=== PATIENT | male | born 1950 | race Caucasian/White ===

== ENCOUNTER → 2022-02-06 15:12 | Outpatient (CLI) | payer OTHER, SELFPAY ==
--- NOTE | ~2022-02-06 | US_ITS ---
EXAMINATION: US soft tissue groin LT DATE: 02/06/2022 15:43 INDICATION: Left lower quadrant pain. TECHNIQUE: Grayscale and Doppler ultrasound images of the left groin/left lower quadrant were obtaine d. COMPARISON: None. FINDINGS: Multiple slightly irregular heterogeneous subcutaneous masses are present, these likely rep resent lymph nodes of varying size and with varying degrees of fatty hilum infiltration the largest m easures 2.8 x 1.5 x 0.4 cm. No cystic lesion or fluid collection. No definite hernia. IMPRESSION: 1. Prominent left inguinal lymph nodes. 2. No significant sonographic abnormality detected. Reviewed, dictated and finalized at location K.
== END ==
PROVIDERS: PCP Family Medicine; Visit Provider Surgery
DX: R10.32 Left lower quadrant pain (principal)
CPT/HCPCS: 76882

== ENCOUNTER → 2022-02-14 13:16 | Outpatient (CLI) | payer OTHER, SELFPAY ==
--- NOTE | ~2022-02-14 | CT_ITS ---
EXAMINATION: CT pelvis wo con DATE: 02/14/2022 13:32 INDICATION: Left lower quadrant abdominal pain. TECHNIQUE: Computed tomography (CT) of the pelvis was performed without intravenous contrast. Automat ed exposure control and iterative reconstruction technique were employed. The dose-length product was 650.40 mGy-cm. COMPARISON: Ultrasound 02/06/2022 FINDINGS: There are no dilated loops of bowel. There is diverticulosis of the colon without evidence of diverticulitis. There are changes of pelvic lymph node dissection. There are changes of prostatect agatha. There is an 11 x 16 mm left external iliac lymph node. There is no free intraperitoneal fluid. T here are benign bone islands in proximal left femur. There is mild lumbar spondylosis. IMPRESSION: 1. Mildly enlarged left external iliac lymph node, which is indeterminate for metastatic disease. Reviewed, dictated and finalized at location B. IMPRESSION: 1. Mildly enlarged left external iliac lymph node, which is indeterminate for m etastatic disease.
== END ==
PROVIDERS: PCP Family Medicine; Visit Provider Surgery
DX: R10.32 Left lower quadrant pain (principal)
CPT/HCPCS: 72192

== ENCOUNTER 2022-03-28 08:00 | Outpatient (RCR) | payer OTHER, SELFPAY ==
--- NOTE | 2022-03-14 17:36 | PTOPEVAL ---
PHYSICAL THERAPY INITIAL EVALUATION. Thank you for referring Mike Rodriguez to [facility].? The patient is scheduled to be seen in 2 weeks. Please review, sign, date and return this plan of care SLIM. I agree with and certify that the following plan of care is medically necessary. Referring Physician Date Attending Provider: Tom Randolph MD *PT Outpatient Evaluation Start: 03/14/22 Evaluation Information Diagnosis L groin pain Subjective Information Pt states a he had an inguinal Query Text:As Reported By Patient/ hernia repair a few years ago Family . He states a few months ago this same pain came back again . A CT scan done showed enlarged lumph notes in his L inguinal region. Prolonged sitting, laying on his side, and performing a squat increases his pain. Pain Assessment Self Report Pain Assessment Left Groin Reported Pain Level 2 Pain Description Aching,Dull Lowest Pain Intensity 2 Greatest Pain Intensity 4 Pain Aggravating Factors Bending,Prolonged Position, Sitting,Walking Lower Extremity Range of Motion General Lower Extremity Range of Motion WFL/Left,WFL/Right Gross Lower Extremity Range of Motion increased reports of pain with Comments supine max hip flexion. No reports of increased pain with seated max hip flexion Lower Extremity Muscle Strength Testing General Lower Extremity Strength WFL/Left,WFL/Right Gross Lower Extremity Strength R LE grossly 5/5 L hip flexion 4/5 - pain reported L knee flexion/extension 5/5 - pain reported shari hip abduction 4/5 bip hip extension 4/5 Muscle Length Testing Right Prone Hip Internal Rotator Length 30 Left Prone Hip Internal Rotator Length ( 20 Right Prone Hip External Rotator Length 50 Left Prone Hip External Rotator Length ( 50 Left Hamstring Length -30 Right Hamstring Length -30 Posture Posture Evaluation View Posterior Thoracic Spine Posture Flattened Pelvis Posture Posterior Tilted Weight Distribution Weight Shifted Left Hip Posture (L) Neutral,(R) Neutral Additional Posture Comments Weight shift to L to unload arthritis R knee Palpation Assessment Palpation no tenderness noted at ASIS
--- NOTE | 2022-03-28 09:02 | PCPTNOTE ---
Attending Provider: Tom Randolph MD Patient:Mike Rodriguez Date of :1950 PHYSICAL THERAPY DISCHARGE SUMMARY. Pt reports good compliance with his HEP, and that his HEP is very targeted to his painful region. He reports his pain is getting progressively better, with 2/10 at the worst in the last week. Pt continues to have increased discomfort with prolonged sitting, he states standing, walking, and his stretching program relieve his symptoms. Mike is here today after 2 weeks of participation in a HEP to target his anterior groin pain. He responded well and with increased mobility after manual therapy techniques to stretch his anterior and lateral hip joint capsule. Mike states he no longer requires therapy services and has the tools he needs to progress at home. He would like to be discharged at this time, therapy is agreeable to this POC. Patient?s initial visit was on 03/14/2022 and he had a total of 2 visits. The goals have been met. Thank you for referring this patient to [facility]. Please review, sign, date and return this discharge summary SLIM. I have been updated about the patient's current status and I agree with discharge from the above service at this time. Referring Physician Date
== END 2022-03-28 14:27 | disposition home or self-care (01) ==
LOC: ANHPT 08:00
PROVIDERS: PCP Family Medicine; Visit Provider Surgery
DX: R10.32 Left lower quadrant pain (principal)
CPT/HCPCS: 97110; 97140; 97161

== ENCOUNTER 2022-04-20 11:46 | Outpatient (RCR) | payer OTHER, SELFPAY ==
[2022-04-20] MEDS: diphenhydrAMINE HCl CAP 25 MG CAPSULE PO (12:13)
[2022-04-20] MEDS: FAMOTIDINE 20 MG TABLET PO (12:13)
[2022-04-20] MEDS: ACETAMINOPHEN 325 MG TABLET 650 MG PO (12:13)
[2022-04-20 12:20] VITALS: BP 146/70; PULSE 72; RESP 20; TEMP 36.8; O2SAT 96
[2022-04-20] MEDS: BEBTELOVIMAB 175 MG/2 ML VIAL IV PUSH (12:32)
[2022-04-20 13:11] VITALS: BP 133/71; PULSE 67; O2SAT 98
== END 2022-04-20 16:00 ==
LOC: AMCINF 11:46
PROVIDERS: PCP Nurse Practitioner Family; Referring Provider Nurse Practitioner Family; Visit Provider Internal Medicine Hematology & Oncology
DX: U07.1 COVID-19 (principal); I10 Essential (primary) hypertension
CPT/HCPCS: A9270; M0222; Q0222

== ENCOUNTER 2025-02-16 10:57 | Outpatient (CLI) | payer OTHER, SELFPAY ==
--- NOTE | ~2025-02-16 | CT_ITS ---
CLINICAL INDICATION: Left lower quadrant pain with a history of melanoma and prostate cancer. COMPARISON: None. TECHNIQUE: Multiple contiguous axial images of the abdomen and pelvis were performed following the ad ministration of with 100 mL Omnipaque-350 intravenous contrast The dose-length product (DLP) was 1197.74 mGy-cm. Automated exposure control and iterative reconstruction technique were employed. FINDINGS/OBSERVATIONS: Visualized lower thorax: The bilateral lung bases are clear. The heart is of normal size, without pericardial effusion. Liver: The liver demonstrates homogeneous enhancement and is not enlarged. Gallbladder and biliary system: The gallbladder is distended, and otherwise unremarkable. Pancreas: The atrophic pancreas enhances homogeneously without ductal dilatation. Spleen: The spleen enhances homogeneously and is not enlarged. Kidneys: Multiple 2 and 3 mm nonobstructing calculi within the upper pole and interpolar regions of t he left kidney. Rounded focus of fluid attenuation within the interpolar region of the right kidney measuring X 6.1 x 5.6 x 5.8 cm (anterior to posterior x medial to lateral x cranial to caudal dimension) consistent wi th a simple cyst for which no further follow-up is needed. The remainder of the bilateral kidneys otherwise enhance symmetrically without hydronephrosis or nader tional renal calculi. Adrenal glands: Unremarkable. Gastrointestinal tract: Bowel loops are decompressed. Colonic diverticulosis without surrounding inflammatory change. Appendix: Surgically absent. Vasculature: Unremarkable. Lymph nodes: No pathologically enlarged or morphologically suspicious lymph nodes within the retroperitoneum or at the root of the mesentery. Pelvic structures: The bladder is only minimally distended, and otherwise unremarkable. The prostate gland is surgically absent. Body wall and musculoskeletal: Small fat-containing umbilical hernia. Age-appropriate degenerative disease within the lumbosacral spine. No lytic or blastic lesions are present. IMPRESSION: Nonobstructing left renal calculi. Right renal cyst which no further follow-up is needed. Sigmoid diverticulosis without surrounding inflammatory change. Reviewed, dictated and finalized at location A.
[2025-02-16 11:33] LABS: Estimated Glomerular Filt Rate > 60
== END 2025-02-16 10:58 | disposition home or self-care (01) ==
LOC: MICIMG 10:58
PROVIDERS: PCP Family Medicine; Visit Provider Family Medicine
DX: N20.0 Calculus of kidney (principal); N28.1 Cyst of kidney, acquired; K57.30 Diverticulosis of large intestine without perforation or abscess without bleeding; Z85.46 Personal history of malignant neoplasm of prostate
CPT/HCPCS: 74177; Q9967